=== PATIENT | female | born 1950 | race Caucasian/White ===

== ENCOUNTER 2017-06-07 20:20 | Outpatient (CLI) | END 2017-06-07 20:21 | disposition short-term general hospital (02) | LOC: AMBL 20:20 | PROVIDERS: ATTEND Emergency Medicine | DX: S49.92XA Unspecified injury of left shoulder and upper arm, initial encounter (principal); W10.9XXA Fall (on) (from) unspecified stairs and steps, initial encounter; Y92.39 Other specified sports and athletic area as the place of occurrence of the external cause ==